=== PATIENT | male | born 1975 | race Caucasian/White ===

== ENCOUNTER 2016-12-09 12:48 | Emergency (ER) | payer SELFPAY ==
[2016-12-09 13:01] VITALS: TEMP 97.3
[2016-12-09] MEDS ORDERED: ASPIRIN TABLET 325 MG TAB PO ONE (13:18)
--- NOTE | 2016-12-09 13:58 | RAD ---
EXAM DESCRIPTION: Shoulder,Left 2 or More Views CLINICAL HISTORY: 41 years,Male,left chest and shoulder pain COMPARISON: None FINDINGS: The left shoulder demonstrates no evidence of fractures or dislocations or acute abnormalities. The acromial clavicular joint is unremarkable. The included lung dockery are unremarkable. There is no significant lateral down sloping of the acromion with no significant narrowing of the supraspinatus outlet. IMPRESSION: Unremarkable shoulder Electronically signed by: Gato Ojeda MD 12/09/2016 1:53 PM CDT
--- NOTE | 2016-12-09 14:02 | RAD ---
EXAM DESCRIPTION: Chest,2 Views CLINICAL HISTORY: 41 years,Male,left chest and shoulder pain COMPARISON: None FINDINGS: There are no consolidations. No effusions. No pneumothoraces. No nodules. Bony elements unremarkable for age. IMPRESSION: Unremarkable chest for age Electronically signed by: Gato Ojeda MD 12/09/2016 2:02 PM CDT
[2016-12-09] MEDS ORDERED: predniSONE 20 MG TAB PO ONE (16:45)
[2016-12-09] MEDS ORDERED: CYCLOBENZAPRINE HCL 10 MG TAB PO ONE (16:45)
--- NOTE | 2016-12-09 16:48 | ED.PDOC ---
History of Present Illness - General Chief Complaint: Chest Pain/ID Stated Complaint: left arm and shoulder pain with numbness Time Seen by Provider: 12/09/16 13:08 Source: patient Exam Limitations: no limitations - History of Present Illness Initial Comments: The patient is a 41-year-old male presenting to the emergency room secondary to left-sided chest pain as well as left-sided shoulder pain and posterior shoulder pain with numbness and tingling that radiates down the left arm from the neck. He has tenderness to palpation over the subacromial bursa. He has tenderness to palpation over the supraspinatus muscle. He has tenderness to palpation over the lateral aspect of the pectoralis muscle on the left. There is no gross deformity. Pain is reproducible with movement. The patient reports chest pain that comes on when he moves the arm. It is not necessarily tied in with exertion. It can occur in almost any position of his body. He does report that he has had a history of questionable coronary artery disease in the past but deferred intervention several years ago. He has not been on any cardiac medications and does not have any chest pain with aerobic exertion. No syncope or near syncope. He has had this shoulder pain off and on for the last 2 years since he injured his shoulder when throwing a large trash can. Timing/Duration: unsure Severity: moderate Improving Factors: immobilization Worsening Factors: movement Associated Symptoms: chest pain Allergies/Adverse Reactions: Allergies NO KNOWN ALLERGY Allergy (Verified 12/09/16 13:00) Home Medications: Ambulatory Orders Aspirin [Aspirin EC Low Dose] 81 mg PO DAILY 12/09/16 Cyclobenzaprine HCl [Flexeril] 5 mg PO TID PRN #30 tab 12/09/16 predniSONE [Prednisone] 20 mg PO DAILY #5 tab 12/09/16 Review of Systems - Review of Systems Constitutional: States: no symptoms reported EENTM: States: no symptoms reported Respiratory: States: no symptoms reported Cardiology: States: chest pain Gastrointestinal/Abdominal: States: no symptoms reported Genitourinary: States: no symptoms reported Musculoskeletal: States: see HPI Skin: States: no symptoms reported Neurological: States: see HPI Endocrine: States: no symptoms reported All other Systems: No Change from Baseline Past Medical History (General) - Patient Medical History Hx Cardiac Disorders: Yes - ID Hx Congestive Heart Failure: No Hx Diabetes: No - Vaccination History Hx Influenza Vaccination: No - Social History Hx Tobacco Use: Yes Family Medical History - Family History Father Family History: Unknown Living Status: Unknown Physical Exam - Physical Exam General Appearance: Alert, Anxious, Comfortable, No apparent distress Eye Exam: bilateral normal Ears, Nose, Throat: hearing grossly normal, normal ENT inspection, normal pharynx Neck: non-tender, full range of motion, supple Respiratory: lungs clear, normal breath sounds, no respiratory distress, no accessory muscle use, other - he does have a chest wall tenderness as described above Cardiovascular/Chest: normal peripheral pulses, regular rate, rhythm, no edema Peripheral Pulses: radial,right: 2+, radial,left: 2+, dorsalis pedis,right: 2+, dorsalis pedis,left: 2+ Gastrointestinal/Abdominal: normal bowel sounds, non tender, soft Rectal Exam: deferred Back Exam: normal inspection, no CVA tenderness, no vertebral tenderness Extremity: no pedal edema, no calf tenderness, normal capillary refill, other - see history of present illness for left upper extremity. Strength is preserved in the forearm and in the bicep. Range of motion of left shoulder is limited secondary to pain. 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, alert, normal mood/affect, oriented x 3 Skin Exam: normal color Comments: Vital Signs - 24 hr 12/09/16 12/09/16 12/09/16 12:56 13:21 14:02 Temperature 97.3 F L Pulse Rate [ 88 88 87 Right Brachial] Respiratory 20 16 Rate Blood Pressure 143/98 112/83 [Right Arm] O2 Sat by Pulse 93 L 97 Oximetry 12/09/16 15:42 Temperature Pulse Rate [ 90 Right Brachial] Respiratory 16 Rate Blood Pressure 141/77 [Right Arm] O2 Sat by Pulse 97 Oximetry Progress - Progress Progress: 12/09/16 16:50 the patient is a 41-year-old male presenting with left sided chest pain that appears to be due to left shoulder pathology. He most likely has a rotator cuff injury. He does need to see orthopedics in the coming week. He' ll be placed on prednisone 20 mg daily for 5 days and he will also be written for a short prescription of Flexeril. He also needs to take aspirin 325 mg daily due to his previous questionable coronary artery issues. He needs to follow up with cardiology for stress test. ER warnings were given for any acute worsening. The patient has had 2 sets of cardiac enzymes that were negative and given his clinical presentation, coronary pathology is highly unlikely as the source of his chest pain. EKG was reassuring. - Results/Orders Results/Orders: x-ray of the chest shows no acute pathology. EKG shows normal sinus rhythm at a rate of 85 bpm. QT interval is within normal limits. Mild right axis deviation. No acute ST segment changes concerning for ischemia. 12/09/16 13:16 Telemetry .CONTINUOUS sinus rhythm 12/09/16 13:30 EKG STAT Laboratory Results - last 24 hr 12/09/16 12/09/16 12/09/16 13:40 13:40 13:40 WBC 5.8 RBC 5.69 Hgb 18.3 H Hct 52.1 H MCV 91.6 MCH 32.1 H MCHC 35.1 RDW 15.9 H Plt Count 165 MPV 7.6 Absolute Neuts (auto) 3.20 Absolute Lymphs (auto) 2.00 Absolute Monos (auto) 0.50 Absolute Eos (auto) 0.10 Absolute Basos (auto) 0.00 Neutrophils % 55.4 Lymphocytes % 34.2 Monocytes % 7.8 Eosinophils % 1.9 Basophils % 0.7 PT 11.4 INR 1.010 PTT (SP) 35.0 D-Dimer, Quantitative < 200 Sodium 136 Potassium 3.7 Chloride 103 Carbon Dioxide 23 Anion Gap 13.7 BUN 7 Creatinine 0.89 BUN/Creatinine Ratio 7.9 L Random Glucose 98 Serum Osmolality 269.9 L Calcium 9.2 Magnesium 2.5 Total Bilirubin 0.6 AST 32 ALT 33 Alkaline Phosphatase 73 Creatine Kinase 128 CK-MB (CK-2) 1.6 CK-MB (CK-2) % Not Reportable Troponin I < 0.02 B-Natriuretic Peptide 6.4 Serum Total Protein 8.7 H Albumin 5.0 Globulin 3.7 H Albumin/Globulin Ratio 1.4 12/09/16 16:20 WBC RBC Hgb Hct MCV MCH MCHC RDW Plt Count MPV Absolute Neuts (auto) Absolute Lymphs (auto) Absolute Monos (auto) Absolute Eos (auto) Absolute Basos (auto) Neutrophils % Lymphocytes % Monocytes % Eosinophils % Basophils % PT INR PTT (SP) D-Dimer, Quantitative Sodium Potassium Chloride Carbon Dioxide Anion Gap BUN Creatinine BUN/Creatinine Ratio Random Glucose Serum Osmolality Calcium Magnesium Total Bilirubin AST ALT Alkaline Phosphatase Creatine Kinase 121 CK-MB (CK-2) 1.5 CK-MB (CK-2) % Not Reportable Troponin I < 0.02 B-Natriuretic Peptide Serum Total Protein Albumin Globulin Albumin/Globulin Ratio Departure - Departure Clinical Impression: Chest pain, musculoskeletal Rotator cuff injury Qualifiers: Encounter type: initial encounter Laterality: left Qualified Code(s): S46.002A - Unspecified injury of muscle(s) and tendon(s) of the rotator cuff of left shoulder, initial encounter Disposition: Discharge to Home or Self Care Departure Forms: ED Discharge - Pt. Copy, Patient Portal Self Enrollment Instructions: DI for Rotator Cuff Injury Diet: regular diet Activity: no pushing/pulling with affected limb Referrals: Kishan Jewell MD [Primary Care Provider] - 1-2 Weeks Prescriptions: Cyclobenzaprine HCl [Flexeril] 5 mg PO TID PRN #30 tab PRN Reason: Muscle Spasms predniSONE [Prednisone] 20 mg PO DAILY #5 tab Home Medications: Ambulatory Orders Aspirin [Aspirin EC Low Dose] 81 mg PO DAILY 12/09/16 Cyclobenzaprine HCl [Flexeril] 5 mg PO TID PRN #30 tab 12/09/16 predniSONE [Prednisone] 20 mg PO DAILY #5 tab 12/09/16 Additional Instructions: the patient is a 41-year-old male presenting with left sided chest pain that appears to be due to left shoulder pathology. He most likely has a rotator cuff injury. He does need to see orthopedics in the coming week. He' ll be placed on prednisone 20 mg daily for 5 days and he will also be written for a short prescription of Flexeril. He also needs to take aspirin 325 mg daily due to his previous questionable coronary artery issues. He needs to follow up with cardiology for stress test. ER warnings were given for any acute worsening. The patient has had 2 sets of cardiac enzymes that were negative and given his clinical presentation, coronary pathology is highly unlikely as the source of his chest pain. EKG was reassuring.
[2016-12-09 17:04] VITALS: BP 152/101; O2SAT 98
== END 2016-12-09 17:04 | disposition home or self-care (01) ==
LOC: ER 12:48
DX: R07.89 Other chest pain (principal); S46.002A Unspecified injury of muscle(s) and tendon(s) of the rotator cuff of left shoulder, initial encounter; Z87.891 Personal history of nicotine dependence
CPT/HCPCS: 36415; 71020; 73030; 80053; 82550; 82553; 83735; 83880; 84484; 85025; 85379; 85610; 85730; 93005; J7512

== ENCOUNTER 2018-04-24 14:16 | Emergency (ER) | payer SELFPAY ==
[2018-04-24 14:27] VITALS: TEMP 98
[2018-04-24] MEDS ORDERED: SODIUM CHLORIDE 0.9% (FLUSH) 10 ML SYG IV PRN (14:52)
[2018-04-24] MEDS ORDERED: KETOROLAC TROMETHAMINE INJ 30 MG/ML VIAL IV ONE (14:52)
--- NOTE | 2018-04-24 15:24 | ED.PDOC ---
History of Present Illness - General Chief Complaint: Abdominal Pain Stated Complaint: rt lower abdominal pain Time Seen by Provider: 04/24/18 14:52 Information Source: patient Exam Limitations: no limitations - History of Present Illness Initial Comments: PT PRESENTS TO THE ED WITH COMPLAINT OF LEFT GROIN AND TESTICULAR PAIN FOR THE PAST 2 WEEKS. 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 PT STATES HE WAS INSTRUCTED TO COME TO THE ED BY DR. STRATTON OFFICE TODAY. PT DENIES FEVER, CHILLS, NAUSEA, VOMITING. Abdominal Pain Onset Location: LLQ Pain Radiation: groin, other - L TESTICLE Quality: moderate, steady Improving Factors: immobilization Worsening Factors: movement Review of Systems - Review of Systems Constitutional: Denies: chills, fever Respiratory: Denies: cough, short of breath Cardiology: Denies: chest pain, palpitations Gastrointestinal/Abdominal: States: see HPI, abdominal pain, constipation. Denies: diarrhea, nausea, vomiting Genitourinary: Denies: dysuria, frequency Musculoskeletal: Denies: joint pain, joint swelling Skin: Denies: dryness, lesions Neurological: States: no symptoms reported Endocrine: States: no symptoms reported Past Medical History (General) - Patient Medical History Hx Cardiac Disorders: Yes - [place] Hx Congestive Heart Failure: No Hx Diabetes: No - Vaccination History Hx Influenza Vaccination: No - Social History Hx Tobacco Use: Yes Hx Alcohol Use: Yes - DAILY 6PACK Hx Substance Use: No Family Medical History - Family History Father Family History: Unknown Living Status: Unknown Physical Exam - Physical Exam General Appearance: Alert, Anxious, Well Developed, Well Groomed, Well Hydrated Eyes, Ears, Nose, Throat Exam: normal ENT inspection Neck: full range of motion, normal inspection Respiratory: lungs clear, normal breath sounds, no respiratory distress Cardiovascular/Chest: regular rate, rhythm, no murmur Gastrointestinal/Abdominal: soft, tenderness - LLQ Male Genitalia: normal genitalia, no hernia, inguinal tenderness - LEFT, testicular tenderness - LEFT Back Exam: normal inspection Extremity: non-tender, normal inspection Neurologic: alert, normal mood/affect, oriented x 3 Skin Exam: normal color, warm/dry Lymphatic: no adenopathy Progress - Progress Progress: 04/24/18 17:54 PT THREATENING TO LEAVE THE ED. LABS AND DIAGNOSTICS DISCUSSED. ADVISED PT TO DISCONTINUE METH USE IT MAY BE CONTRIBUTING TO GI SYMPTOMS. RECOMMEND FOLLOW UP WITH DR. LOCK AN OUTPATIENT. - Results/Orders Results/Orders: 04/24/18 14:52 IV Care:Saline Lock per Protoc QSHIFT Sodium Chloride 0.9% (Flush) [Saline Flush Syringe] 10 ml IV PRN PRN 04/24/18 14:53 GC CHLAMYDIA RNA,TMA Stat 04/24/18 16:49 Hold Metformin x 48Hrs [id number] Laboratory Results - last 24 hr 04/24/18 04/24/18 04/24/18 14:54 15:10 15:10 WBC 5.0 RBC 4.59 L Hgb 14.1 Hct 42.2 MCV 91.9 MCH 30.7 MCHC 33.5 RDW 13.9 Plt Count 259 MPV 7.8 Absolute Neuts (auto) 2.70 Absolute Lymphs (auto) 1.80 Absolute Monos (auto) 0.40 Absolute Eos (auto) 0.10 Absolute Basos (auto) 0.00 Neutrophils % 53.4 Lymphocytes % 35.9 Monocytes % 8.6 Eosinophils % 1.5 Basophils % 0.6 Sodium 135 Potassium 3.0 L Chloride 105 Carbon Dioxide 19 L Anion Gap 14.0 BUN 12 Creatinine 0.78 BUN/Creatinine Ratio 15.4 Random Glucose 78 Serum Osmolality 268.7 L Calcium 9.2 Total Bilirubin < 0.2 L Direct Bilirubin < 0.1 Indirect Bilirubin 0.1 L AST 22 ALT 17 Alkaline Phosphatase 75 Serum Total Protein 7.5 Albumin 3.9 Urine Color Urine Appearance Urine pH Ur Specific [place] Urine Protein Urine Glucose (UA) Urine Ketones Urine Blood Urine Nitrite Urine Bilirubin Urine Urobilinogen Ur Leukocyte Esterase Urine RBC Urine WBC Ur Epithelial Cells Urine Bacteria Urine Opiates Screen Negative Urine Barbiturates Negative Ur Phencyclidine Scrn Negative U Amphetamin/Meth Scrn Positive H U Benzodiazepines Scrn Negative U Cocaine Metab Screen Negative U Cannabinoids Screen Negative Ethyl Alcohol 04/24/18 04/24/18 15:10 15:23 WBC RBC Hgb Hct MCV MCH MCHC RDW Plt Count MPV Absolute Neuts (auto) Absolute Lymphs (auto) Absolute Monos (auto) Absolute Eos (auto) Absolute Basos (auto) Neutrophils % Lymphocytes % Monocytes % Eosinophils % Basophils % Sodium Potassium Chloride Carbon Dioxide Anion Gap BUN Creatinine BUN/Creatinine Ratio Random Glucose Serum Osmolality Calcium Total Bilirubin Direct Bilirubin Indirect Bilirubin AST ALT Alkaline Phosphatase Serum Total Protein Albumin Urine Color Yellow Urine Appearance Clear Urine pH 5.5 Ur Specific [place] <= 1.005 Urine Protein Negative Urine Glucose (UA) Negative Urine Ketones Negative Urine Blood Negative Urine Nitrite Negative Urine Bilirubin Negative Urine Urobilinogen 0.2 Ur Leukocyte Esterase Negative Urine RBC 0 Urine WBC 0 Ur Epithelial Cells 0 Urine Bacteria 0 Urine Opiates Screen Urine Barbiturates Ur Phencyclidine Scrn U Amphetamin/Meth Scrn U Benzodiazepines Scrn U Cocaine Metab Screen U Cannabinoids Screen Ethyl Alcohol 138.50 H* - EKG/XRAY/CT CT Ordered: Yes - Consult/PCP Time Called: 17:40 - RESULTS DISCUSSED, RECOMMENDED F/U OUTPATIENT. Consult/PCP: DR. LOCK Departure - Departure Clinical Impression: Abdominal pain, Colitis, Gastritis, Methamphetamine abuse, Alcohol intoxication , Constipation Time of Disposition: 17:56 Disposition: Discharge to Home or Self Care Condition: Fair Departure Forms: ED Discharge - Pt. Copy, Patient Portal Self Enrollment Instructions: DI for Abdominal Pain-Adult Diet: bland diet Referrals: Renan Lock MD [Active Staff] - 1 Week Prescriptions: Pantoprazole Tablet [Protonix] 40 mg PO ACBK #30 tab Polyethylene Glycol 3350 [Miralax] 17 gm PO DAILY 20 Days #20 pckt Home Medications: Ambulatory Orders Aspirin [Aspirin EC Low Dose] 81 mg PO DAILY 12/09/16 Cyclobenzaprine HCl [Flexeril] 5 mg PO TID PRN #30 tab 12/09/16 predniSONE [Prednisone] 20 mg PO DAILY #5 tab 12/09/16 Pantoprazole Tablet [Protonix] 40 mg PO ACBK #30 tab 04/24/18 Polyethylene Glycol 3350 [Miralax] 17 gm PO DAILY 20 Days #20 pckt 04/24/18
--- NOTE | 2018-04-24 16:46 | US ---
EXAM:Testicular Ultrasound. INDICATION: Left testicle Pain COMPARISON:None. TECHNIQUE: Grayscale and doppler sonogram of the testicles. FINDINGS: The right testicle measures 4.9 x 3.4 x 3.0 cm. Left testicle measures 4.6 x 3.9 x 2.8 cm. Bilateral testicles within normal limits with no focal lesion. Color-flow detected bilateral testicles. The right epididymis measures 1.2 x 1.5 x 1.6 cm. Left epididymis measures 0.9 x 1.3 x 1.5 cm. Bilateral epididymal vascular flow seen, grossly symmetrical. Complex areas seen within the left and right inguinal area, on the right measuring 4.8 x 2.8 x 1.7 cm and on the left measuring 4.6 x 3.3 x 2.1 cm. These are predominantly hyperechoic and no peristalsis seen during this examination (per technologist). Small bilateral hydroceles. IMPRESSION: Complex areas seen within the left and right inguinal area, on the right measuring up to 4.8 cm and on the left measuring up to 4.6 cm. No peristalsis seen during examination. Findings nonspecific and may represent herniated fat, however, cannot entirely exclude herniated bowel. CT abdomen/pelvis including area of concern may be obtained for further evaluation. Sonographic evaluation of the testicles is within normal limits. Electronically signed by: Alejandro Villagomez MD 04/24/2018 4:45 PM CDT
--- NOTE | 2018-04-24 17:23 | CT ---
EXAM DESCRIPTION: Abdomen/Pelvis w/Contrast CLINICAL HISTORY: LLQ ABD PAIN, L TESTICULAR PAIN COMPARISON: None Available TECHNIQUE: Contiguous axial images of the abdomen and pelvis were obtained after the administration of intravenous contrast followed by reconstruction images.This exam was performed according to our departmental dose-optimization program, which includes automated exposure control, adjustment of the mA and/or kV according to patient size and/or use of iterative reconstruction technique. FINDINGS: The stomach is underdistended but there is apparent thickening of the wall of the stomach. This could reflect inflammation. The sigmoid colon takes a mildly abrupt turn. Detail is limited in this region and there is no intraluminal contrast. This could be transient. There is mild thickening of the rectosigmoid wall that may reflect inflammation. No definite obstruction of the bowel. There is a heterogeneous exophytic lesion of the right kidney that is not a simple cyst, measuring approximately 28 mm. Neoplasm is not excluded. There is a small left hydrocele incompletely imaged. There is scrotal skin thickening. This is also incompletely imaged. No other acute abnormality. There is no hydronephrosis. The gallbladder is unremarkable. Adrenal glands are within normal limits. Aorta is normal in caliber and tapering. No significant free fluid. No free air. No bowel obstruction. There is no stranding of the mesenteric fat. The appendix appears normal. No evidence of periappendiceal inflammation. IMPRESSION: Small left hydrocele with left scrotal skin thickening incompletely seen. Possible mild or intermittent twisting of the sigmoid and possible inflammation of the rectosigmoid. Possible inflammation of the stomach wall. There is nonspecific right renal exophytic heterogeneous lesion. Electronically signed by: Babak Cleaning 04/24/2018 5:21 PM CDT
[2018-04-24 18:31] VITALS: BP 166/118; O2SAT 96
== END 2018-04-24 18:15 | disposition home or self-care (01) ==
LOC: ER 14:16
DX: K52.9 Noninfective gastroenteritis and colitis, unspecified (principal); K29.70 Gastritis, unspecified, without bleeding; F15.10 Other stimulant abuse, uncomplicated; F10.129 Alcohol abuse with intoxication, unspecified; K29.00 Acute gastritis without bleeding; N50.812 Left testicular pain; I25.2 Old myocardial infarction; Z87.891 Personal history of nicotine dependence
CPT/HCPCS: 36415; 74177; 76870; 80048; 80076; 80307; 80320; 81001; 85025; J1885

== ENCOUNTER → 2020-02-06 | Outpatient (CLI) | payer OTHER | LOC: LAB.O 10:46 | PROVIDERS: ATTEND Nurse Practitioner Family | DX: I10 Essential (primary) hypertension (principal) ==

== ENCOUNTER → 2020-04-18 | Outpatient (CLI) | payer OTHER ==
--- NOTE | 2020-04-21 11:28 | RAD ---
EXAM DESCRIPTION: Skull Series CLINICAL HISTORY: RANGEL COMPARISON: None. IMPRESSION: 4 views of the skull shows no depressed skull fracture or focal bone destruction. Normal aeration of the paranasal sinuses. No air-fluid levels to suggest acute sinusitis. Mild increased density in the right greater than left maxillary sinus region suggests subacute to chronic sinus disease. Orbits are unremarkable. Electronically signed by: Ruben Strong MD 04/21/2020 11:26 AM CDT
== END ==
LOC: RAD 14:16
PROVIDERS: ATTEND Nurse Practitioner Family
DX: R51 Headache (principal); J34.9 Unspecified disorder of nose and nasal sinuses